=== PATIENT | female | born 1955 | race Caucasian/White ===

== ENCOUNTER → 2016-12-15 | Outpatient (CLI) | payer OTHER ==
[~2016-12-15] MED LIST: OXYC-12 PO
--- OUTSIDE RECORDS SUMMARY | 2016-12-15 07:38 | XMS REPORT | Continuity of Care Document ---
Author Author [facility] Organization [facility] Address Unknown Phone Unavailable Care Team Providers Care [place] Polisher Name Role Phone NAHID GALE PCP Insurance Providers Payer Name Policy Number Subscriber Name Relationship [facility] [id number] Lizbeth Vazquez 17 Self / Same As Patient Advance Directives Directive Response Recorded Date/Time Advance Directives No 02/02/15 8:00am Resuscitation Status Full Code 02/02/15 8:00am Chief Complaint and Reason for Visit Chief Complaint SMALL BOWEL OBSTRUCTION Reason for Visit Small bowel obstruction Small bowel obstruction Problems Medical Problems Problem Onset Date Status Small bowel obstruction Unknown Active Small bowel obstruction Unknown Active Medications Medication Dose Route Sig Days/Qty Instructions Order Date Discontinued Date Status Oxycodone Hcl/Acetaminophen 1-2 Tab PO EVERY 4HRS PRN PAIN 60 Qty 02/03 Active Social History Social History Problem Response Recorded Date/Time Alcohol Use Occasionally Uses 02/02/2015 8:00am Recreational Drug Use No 02/02/2015 8:00am Recent Foreign Travel No 02/02/2015 8:00am Recent Infectious Disease Exposure No 02/02/2015 8:00am Smoking Status Never a Smoker 02/02/2015 8:00am Query Response Start Date Stop Date Smoking Status Never a Smoker Hospital Discharge Instructions No hospital discharge instructions. Plan of Care Discharge Date 02/03/15 7:46pm Disposition 30 STILL A PATIENT Instructions/Education Provided Acute Abdominal Pain (ED) Forms Provided PDI Surgical Prescriptions See Medications Section Referrals TARAN PRINCE DO (Unspecified) Address: [address] [place], [place] [id number] Reason(s) for Referral: PLEASE CALL OFFICE TOMORROW FOR FOLLOW UP NEXT WEEK Functional Status No functional status results. Allergies, Adverse Reactions, Alerts Allergen Type Severity Reaction Status Last Updated No Known Drug Allergies Active 02/02/15 Immunizations No immunization records. Vital Signs Acute Vital Signs Vital Response Date/Time Temperature (Fahrenheit) 98.7 degrees F (97.6 - 99.5) Temperature (Calculated Celsius) 37.61551 degrees C (36.4 - 37.5) Temperature Source Temporal Pulse Rate (adult) 63 bpm (60 - 90) Respiratory Rate 18 bpm (12 - 24) O2 Sat by Pulse Oximetry 97 % (88 - 100) Blood Pressure 106/68 mm Hg Pain Pain Intensity 0 Height (Feet) 5 feet Height (Inches) 5.00 inches Height (Calculated Centimeters) 165.625962 cm Weight (Pounds) 130 pounds Weight (Calculated Grams) 86738.009 gm Weight (Calculated Kilograms) 58.197355 kilograms Calculated BMI 21.63 Results Laboratory Results Test Name Result Units Flags Reference Collection Date/Time Result Date/ Time Comments White Blood Count 12.2 10^3/uL H 4.3-11.0 02/03/2015 6:52am 02/03/2015 7: 01am Red Blood Count 3.99 10^6/uL L 4.35-5.85 02/03/2015 6:52am 02/03/2015 7: 01am Hemoglobin 12.3 G/DL 11.5-16.0 02/03/2015 6:52am 02/03/2015 7:01am Hematocrit 37 % 35-52 02/03/2015 6:52am 02/03/2015 7:01am Mean Corpuscular Volume 93 FL 80-99 02/03/2015 6:52am 02/03/2015 7: 01am Mean Corpuscular Hemoglobin 31 PG 25-34 02/03/2015 6:52am 02/03/2015 7: 01am Mean Corpuscular Hemoglobin Concent 33 G/DL 32-36 02/03/2015 6:52am 03/2015 7:01am Red Cell Distribution Width 13.6 % 10.0-14.5 02/03/2015 6:52am 2014 7:01am Platelet Count 186 10^3/uL 130-400 02/03/2015 6:52am 02/03/2015 7:01am Mean Platelet Volume 10.0 FL 7.4-10.4 02/03/2015 6:52am 02/03/2015 7: 01am Neutrophils (%) (Auto) 89 % H 42-75 02/02/2015 5:3002/02/2015 5:45am Lymphocytes (%) (Auto) 7 % L 12-44 02/02/2015 5:3002/02/2015 5:45am Monocytes (%) (Auto) 3 % 0-12 02/02/2015 5:02/02/2015 5:45am Eosinophils (%) (Auto) 0 % 0-10 02/02/2015 5:3002/02/2015 5:45am Basophils (%) (Auto) 0 % 0-10 02/02/2015 5:02/02/2015 5:45am Neutrophils # (Auto) 8.8 X 10^3 H 1.8-7.8 02/02/2015 5:02/02/2015 5: 45am Lymphocytes # (Auto) 0.7 X 10^3 L 1.0-4.0 02/02/2015 5:3002/02/2015 5: 45am Monocytes # (Auto) 0.3 X 10^3 0.0-1.0 02/02/2015 5:3002/02/2015 5: 45am Eosinophils # (Auto) 0.0 10^3/uL 0.0-0.3 02/02/2015 5:3002/02/2015 5 :45am Basophils # (Auto) 0.0 10^3/uL 0.0-0.1 02/02/2015 5:3002/02/2015 5: 45am Neutrophils % (Manual) 83 % 02/02/2015 5:3002/02/2015 6:05am Band Neutrophils 4 % 02/02/2015 5:3002/02/2015 6:05am Lymphocytes % (Manual) 10 % 02/02/2015 5:30am 02/02/2015 6:05am Monocytes % (Manual) 2 % 02/02/2015 5:30am 02/02/2015 6:05am Eosinophils % (Manual) 1 % 02/02/2015 5:30am 02/02/2015 6:05am Anisocytosis SLIGHT 02/02/2015 5:30am 02/02/2015 6:05am Urine Color YELLOW 02/02/2015 7:0602/02/2015 7:23am Urine Clarity CLEAR 02/02/2015 7:0602/02/2015 7:23am Urine pH 6 5-9 02/02/2015 7:02/02/2015 7:23am Urine Specific [place] 1.020 1.016-1.022 02/02/2015 7:062014 7:23am Urine Protein 2+ * NEGATIVE 02/02/2015 7:02/02/2015 7:23am Urine Glucose (UA) NEGATIVE NEGATIVE 02/02/2015 7:02/02/2015 7: 23am Urine RBC (Auto) 2+ * NEGATIVE 02/02/2015 7:02/02/2015 7:23am Urine Ketones NEGATIVE NEGATIVE 02/02/2015 7:0602/02/2015 7:23am Urine Nitrite NEGATIVE NEGATIVE 02/02/2015 7:02/02/2015 7:23am Urine Bilirubin NEGATIVE NEGATIVE 02/02/2015 7:02/02/2015 7: 23am Urine Urobilinogen NORMAL MG/DL NORMAL 02/02/2015 7:02/02/2015 7: 23am Urine Leukocyte Esterase 1+ * NEGATIVE 02/02/2015 7:02/02/2015 7: 23am Urine RBC NONE /HPF 02/02/2015 7:02/02/2015 7:23am Urine WBC 0-2 /HPF 02/02/2015 7:02/02/2015 7:23am Urine Bacteria FEW /HPF * 02/02/2015 7:02/02/2015 7:23am Urine Squamous Epithelial Cells 0-2 /HPF 02/02/2015 7:2014 7:23am Urine Crystals NONE /LPF 02/02/2015 7:0602/02/2015 7:23am Urine Casts NONE /LPF 02/02/2015 7:06am 02/02/2015 7:23am Urine Mucus NEGATIVE /LPF 02/02/2015 7:0602/02/2015 7:23am Urine Culture Indicated NO 02/02/2015 7:0602/02/2015 7:23am Sodium Level 142 MMOL/L 135-145 02/03/2015 6:52am 02/03/2015 7:29am Potassium Level 4.2 MMOL/L 3.6-5.0 02/03/2015 6:52am 02/03/2015 7:29am Chloride Level 113 MMOL/L H 98-107 02/03/2015 6:52am 02/03/2015 7:29am Carbon Dioxide Level 24 MMOL/L 21-32 02/03/2015 6:52am 02/03/2015 7: 29am Blood Urea Nitrogen 6 MG/DL L 7-18 02/03/2015 6:52am 02/03/2015 7:29am Creatinine 0.82 MG/DL 0.60-1.30 02/03/2015 6:52am 02/03/2015 7:29am BUN/Creatinine Ratio 7 02/03/2015 6:52am 02/03/2015 7:29am Estimat Glomerular Filtration Rate > 60 02/03/2015 6:52am 2014 7:29am GFR INTERPRETIVE DATA UNITS FOR ESTIMATED GFR (eGFR): mL/min/1.73 M2 REFERENCE RANGE FOR ESTIMATED GFR (eGFR) eGFR NORMAL eGFR >60 MODERATELY DECREASED eGFR 30-59 SEVERLY DECREASED eGFR 15-29 KIDNEY FAILURE <15 (OR DIALYSIS) Glucose Level 133 MG/DL H 70-105 02/03/2015 6:52am 02/03/2015 7:29am Calcium Level 8.7 MG/DL 8.5-10.1 02/03/2015 6:52am 02/03/2015 7:29am Total Bilirubin 0.3 MG/DL 0.1-1.0 02/02/2015 5:30am 02/02/2015 6:01am Alkaline Phosphatase 65 U/L 40-136 02/02/2015 5:30am 02/02/2015 6:01am Aspartate Amino Transf (AST/SGOT) 20 U/L 5-34 02/02/2015 5:30am 2014 6:01am Alanine Aminotransferase (ALT/SGPT) 15 U/L 0-55 02/02/2015 5:30am 02/02 6:01am Total Protein 7.9 G/DL 6.4-8.2 02/02/2015 5:30am 02/02/2015 6:01am Albumin 4.5 G/DL 3.2-4.5 02/02/2015 5:30am 02/02/2015 6:01am Amylase Level 71 U/L 25-125 02/02/2015 5:30am 02/02/2015 6:01am Lipase 32 U/L 8-78 02/02/2015 5:30am 02/02/2015 6:01am Procedures Procedure Status Date Provider(s) Diagnostic laparoscopy completed 02/02/15 TARAN PRINCE DO Encounters Encounter Location Date/Time Admitted Inpatient [facility] 02/02/15 6:54am Recent Diagnosis Small bowel obstruction Small bowel obstruction
--- NOTE | 2016-12-15 18:32 | Diagnostic Imaging Report ---
Bilateral screening mammogram. The current study was also evaluated with a Computer Aided Detection (CAD) system. INDICATION: Screening. No current complaints stated on the questionnaire. COMPARISON: 07/31/2015. FINDINGS: The breasts are composed of heterogeneously dense parenchyma which may decrease mammographic sensitivity. Calcifications are seen slightly increased in the breasts bilaterally. A rim calcification is suggested around a 6 mm lesion in the upper aspect of the left breast probably related to an old cyst. No developing suspicious mass or cluster of calcifications seen. IMPRESSION: No mammographic evidence of malignancy. ACR BI-RADS Category 2: Benign findings. Result letter will be mailed to the patient. Note: At least 10% of breast cancer is not imaged by mammography. Dictated by: Dictated on workstation # [id number]
== END ==
LOC: RAD 07:36
PROVIDERS: ATTEND Internal Medicine
DX: Z12.31 Encounter for screening mammogram for malignant neoplasm of breast (principal)
CPT/HCPCS: 77067

== ENCOUNTER → 2017-09-08 | Outpatient (CLI) | payer OTHER ==
[2017-09-08 10:06] LABS: BASOPHILS # (AUTO) 0.1 10^3/uL (0.0-0.1); BASOPHILS % (AUTO) 1 % (0-10); EOSINOPHILS # (AUTO) 0.2 10^3/uL (0.0-0.3); EOSINOPHILS % (AUTO) 3 % (0-10); LYMPHOCYTES # (AUTO) 1.7 X 10^3 (1.0-4.0); LYMPHOCYTES % (AUTO) 28 % (12-44); MEAN CORPUSCULAR HEMOGLOBIN 31 PG (25-34); MEAN CORPUSCULAR HGB CONC 34 G/DL (32-36); MEAN CORPUSCULAR VOLUME 92 FL (80-99); MONOCYTES # (AUTO) 0.5 X 10^3 (0.0-1.0); MONOCYTES % (AUTO) 8 % (0-12); NEUTROPHILS # (AUTO) 3.5 X 10^3 (1.8-7.8); NEUTROPHILS % (AUTO) 59 % (42-75); PLATELET COUNT 232 10^3/uL (130-400); RED BLOOD COUNT 4.82 10^6/uL (4.35-5.85); RED CELL DISTRIBUTION WIDTH 13.4 % (10.0-14.5); WHITE BLOOD COUNT 5.9 10^3/uL (4.3-11.0)
[2017-09-08 10:24] LABS: ALBUMIN 4.5 GM/DL (3.2-4.5); BILIRUBIN,TOTAL 0.6 MG/DL (0.1-1.0); CALCIUM 9.7 MG/DL (8.5-10.1); CREATININE SERUM 1.06 MG/DL (0.60-1.30); POTASSIUM 4.2 MMOL/L (3.6-5.0); TOTAL PROTEIN 7.8 GM/DL (6.4-8.2)
[2017-09-08 10:45] LABS: THYROID STIMULATING HORMONE 1.08 UIU/ML (0.35-4.94)
== END ==
LOC: LAB 09:29
PROVIDERS: ATTEND Internal Medicine
DX: Z00.00 Encounter for general adult medical examination without abnormal findings (principal); E78.00 Pure hypercholesterolemia, unspecified; E78.1 Pure hyperglyceridemia
CPT/HCPCS: 36415; 80053; 80061; 84443; 85025

== ENCOUNTER 2017-11-19 11:35 | Emergency (ER) | payer OTHER ==
[~2017-11-19] VITALS: Ht 165.1 cm; Wt 59.0 kg
--- NOTE | 2017-11-19 11:56 | ED Cough/URI ---
General Stated Complaint: PNUEMONIA WORSENING, PASSED OUT Source: patient Exam Limitations: no limitations History of Present Illness Date Seen by Provider: Nov 19, 2017 Time Seen by Provider: 11:53 Initial Comments To ER accompanied by her with a 4 to five-day history of cough. The cough is occasionally productive. On the second or third day of this illness which would've been the she was seen by her primary care DrJack Gale started on Omnicef. Today she passed out while on the toilet in her cough persists. Historian, she has only passed out with a high fever and she is uncertain whether or not she had a fever this morning when she passed out. Timing/Duration: constant Severity/Quality: moderate Associated Symptoms: cough Allergies and Home Medications Allergies Coded Allergies: No Known Drug Allergies (Unverified , 02/02/15) Home Medications Cefdinir 300 Mg Capsule, (Reported) Omeprazole 40 Mg Capsule., (Reported) Oxycodone Hcl/Acetaminophen 1 Each Tablet, 1-2 TAB PO Q4H PRN for PAIN, #60 Ref 0 Prescribed by: MORGAN SCHOFIELD on 02/03/15 1804 Constitutional: see HPI, chills EENTM: see HPI Respiratory: see HPI, cough Genitourinary: no symptoms reported Musculoskeletal: no symptoms reported Skin: no symptoms reported Psychiatric/Neurological: No Symptoms Reported Hematologic/Lymphatic: No Symptoms Reported Past Bxyrvhj-Pgpxjh-Vrfasd Hx Patient Social History Recent Foreign Travel: No Contact w/Someone Who Travel: No Seasonal Allergies Seasonal Allergies: No Surgeries Surgeries: Abdominal, Breast, Hysterectomy, Tubal Ligation Reproductive System 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 Blood Transfusions Adverse Reaction to a Blood Tr: No Physical Exam Vital Signs Vital Sign - Last 12Hours 11/19/17 11:41 Temp 98.5 Pulse 81 Resp 18 B/P (MAP) 138/69 (92) Pulse Ox 98 O2 Delivery Room Air Capillary Refill : General Appearance: WD/WN, no apparent distress Eyes: Bilateral Eye Normal Inspection, Bilateral Eye PERRL, Bilateral Eye EOMI HEENT: PERRL/EOMI, normal ENT inspection Neck: non-tender, full range of motion Respiratory: normal breath sounds, no respiratory distress, no accessory muscle use Cardiovascular: regular rate, rhythm, no murmur Gastrointestinal: normal bowel sounds, non tender, soft Extremities: normal range of motion, non-tender Neurologic/Psychiatric: alert, normal mood/affect, oriented x 3 Skin: normal color, warm/dry Focused Exam Evaluation Lactate Level Laboratory Tests 11/19/17 11:47: Lactic Acid Level 1.17 Lactic Acid Level Laboratory Tests Test 11/19/17 11:47 Lactic Acid Level 1.17 MMOL/L (0.50-2.00) Progress/Results/Core Measures Suspected Sepsis SIRS Temperature: Pulse: Respiratory Rate: Laboratory Tests 11/19/17 11:47: White Blood Count 5.8 Blood Pressure / Mean: Laboratory Tests 11/19/17 11:47: Lactic Acid Level 1.17 Laboratory Tests 11/19/17 11:47: Creatinine 1.08, Platelet Count 189, Total Bilirubin 0.4 Results/Orders Lab Results Laboratory Tests Test 11/19/17 11:47 11/19/17 12:03 Range/Units White Blood Count 5.8 4.3-11.0 10^3/uL Red Blood Count 4.59 4.35-5.85 10^6/uL Hemoglobin 14.1 11.5-16.0 G/DL Hematocrit 41 35-52 % Mean Corpuscular Volume 90 80-99 FL Mean Corpuscular Hemoglobin 31 25-34 PG Mean Corpuscular Hemoglobin Concent 34 32-36 G/DL Red Cell Distribution Width 13.3 10.0-14.5 % Platelet Count 189 130-400 10^3/uL Mean Platelet Volume 10.0 7.4-10.4 FL Neutrophils (%) (Auto) 70 42-75 % Lymphocytes (%) (Auto) 18 12-44 % Monocytes (%) (Auto) 12 0-12 % Eosinophils (%) (Auto) 1 0-10 % Basophils (%) (Auto) 0 0-10 % Neutrophils # (Auto) 4.1 1.8-7.8 X 10^3 Lymphocytes # (Auto) 1.0 1.0-4.0 X 10^3 Monocytes # (Auto) 0.7 0.0-1.0 X 10^3 Eosinophils # (Auto) 0.0 0.0-0.3 10^3/uL Basophils # (Auto) 0.0 0.0-0.1 10^3/uL Sodium Level 137 135-145 MMOL/L Potassium Level 3.7 3.6-5.0 MMOL/L Chloride Level 104 98-107 MMOL/L Carbon Dioxide Level 22 21-32 MMOL/L Anion Gap 11 5-14 MMOL/L Blood Urea Nitrogen 10 7-18 MG/DL Creatinine 1.08 0.60-1.30 MG/DL Estimat Glomerular Filtration Rate 51 BUN/Creatinine Ratio 9 Glucose Level 192 H 70-105 MG/DL Lactic Acid Level 1.17 0.50-2.00 MMOL/L Calcium Level 9.2 8.5-10.1 MG/DL Total Bilirubin 0.4 0.1-1.0 MG/DL Aspartate Amino Transf (AST/SGOT) 21 5-34 U/L Alanine Aminotransferase (ALT/SGPT) 18 0-55 U/L Alkaline Phosphatase 70 40-136 U/L Total Protein 7.4 6.4-8.2 GM/DL Albumin 4.2 3.2-4.5 GM/DL Urine Color YELLOW Urine Clarity CLEAR Urine pH 6 5-9 Urine Specific [place] 1.005 L 1.016-1.022 Urine Protein NEGATIVE NEGATIVE Urine Glucose (UA) NEGATIVE NEGATIVE Urine Ketones 1+ H NEGATIVE Urine Nitrite NEGATIVE NEGATIVE Urine Bilirubin NEGATIVE NEGATIVE Urine Urobilinogen NORMAL NORMAL MG/DL Urine Leukocyte Esterase NEGATIVE NEGATIVE Urine RBC (Auto) 2+ H NEGATIVE Urine RBC RARE /HPF Urine WBC NONE /HPF Urine Squamous Epithelial Cells NONE /HPF Urine Crystals NONE /LPF Urine Bacteria NEGATIVE /HPF Urine Casts NONE /LPF Urine Mucus NEGATIVE /LPF Urine Culture Indicated NO Micro Results Microbiology 11/19/17 Influenza Types A,B Antigen (JEMMA) - Final, Complete My Orders Orders - SEAN VILLARREAL [employer] Cbc With Automated Diff (11/19/17 11:51) Comprehensive Metabolic Panel (11/19/17 11:51) Influenza A And B Antigens (11/19/17 11:51) Chest Pa/Lat (2 View) (11/19/17 11:51) Blood Culture (11/19/17 11:51) Lactic Acid Analyzer (11/19/17 11:51) Ekg Tracing (11/19/17 11:51) Lactated Ringers (Lr 1000 Ml Iv Solution (11/19/17 12:00) Ua Culture If Indicated (11/19/17 12:02) Vital Signs/I&O Vital Sign - Last 12Hours 11/19/17 11:41 Temp 98.5 Pulse 81 Resp 18 B/P (MAP) 138/69 (92) Pulse Ox 98 O2 Delivery Room Air Capillary Refill : Diagnostic Imaging Diagonstic Imaging: Xray Plain Films/CT/US/NM/MRI: chest Comments NAME: JANEY G[facility] REC#: [id number] PT STATUS: REG ER : 1955 PHYSICIAN: SEAN VILLARREAL APRN ADMIT DATE: 11/19/17/ER Draft Date of Exam:11/19/17 CHEST PA/LAT (2 VIEW) Indication: Fever and cough Comparison: 09/02/2009 Findings: 2 views of the chest are obtained. Heart size is normal. The pulmonary vessels appear unremarkable. There is no pneumothorax, mediastinal widening or pleural fluid. The lungs are clear. Impression: No acute abnormalities demonstrated. Dictated on workstation # [id number] Dict: 11/19/17 1221 Trans: 11/19/17 1222 [facility] [id number] Interpreted by: HESHAM TEMPLETON DO Electronically signed by: Departure Impression Impression: Primary Impression: Influenza B Disposition: HOME, SELF-CARE Condition: Stable Departure-Patient Inst. Decision time for Depature: 12:28 Referrals: NAHID GALE DO (PCP/Family) Primary Care Physician Patient Instructions: Flu, Adult (DC) Add. Discharge Instructions: 1. Tylenol and Motrin for fever or body aches 2. You may stop the antibiotic 3. Use the cough medication as needed 4. Return to ER for any shortness of breath or other concerns. Scripts Promethazine HCl/Codeine (Prometh-Codein 6.25-10 mg/5 ml) 5 Ml Syrup 5 ML PO Q6H Y for COUGH, #120 ML Prov: SEAN VILLARREAL APRN 11/19/17 Copy Copies To 1: NAHID GALE PETER J APRN Nov 19, 2017 11:55
[2017-11-19] MEDS ORDERED: LACTATED RINGERS 1,000 ML IV SCH (12:00)
[2017-11-19 12:02] LABS: BASOPHILS % (AUTO) 0 % (0-10); EOSINOPHILS % (AUTO) 1 % (0-10); HEMATOCRIT 41 % (35-52); HEMOGLOBIN 14.1 G/DL (11.5-16.0); LYMPHOCYTES % (AUTO) 18 % (12-44); MEAN CORPUSCULAR HEMOGLOBIN 31 PG (25-34); MEAN CORPUSCULAR HGB CONC 34 G/DL (32-36); MEAN CORPUSCULAR VOLUME 90 FL (80-99); MONOCYTES # (AUTO) 0.7 X 10^3 (0.0-1.0); MONOCYTES % (AUTO) 12 % (0-12); NEUTROPHILS # (AUTO) 4.1 X 10^3 (1.8-7.8); NEUTROPHILS % (AUTO) 70 % (42-75); PLATELET COUNT 189 10^3/uL (130-400); RED BLOOD COUNT 4.59 10^6/uL (4.35-5.85); RED CELL DISTRIBUTION WIDTH 13.3 % (10.0-14.5); WHITE BLOOD COUNT 5.8 10^3/uL (4.3-11.0)
[2017-11-19] MEDS ORDERED: OMEP40CA36 (12:03)
[2017-11-19] MEDS ORDERED: CEFD300C3 (12:03)
[2017-11-19 12:10] LABS: BILIRUBIN,URINE NEGATIVE (NEGATIVE); CLARITY,URINE CLEAR; COLOR,URINE YELLOW; GLUCOSE, URINE (UA) NEGATIVE (NEGATIVE); KETONES,URINE 1+ (NEGATIVE); LEUKOCYTE ESTERASE ,URINE NEGATIVE (NEGATIVE); NITRITE,URINE NEGATIVE (NEGATIVE); PH,URINE 6 (5-9); PROTEIN,URINE NEGATIVE (NEGATIVE); UROBILINOGEN,URINE NORMAL (NORMAL)
[2017-11-19 12:18] LABS: BACTERIA,URINE NEGATIVE /HPF; RBC,URINE RARE /HPF
[2017-11-19 12:21] LABS: ALBUMIN 4.2 GM/DL (3.2-4.5); BILIRUBIN,TOTAL 0.4 MG/DL (0.1-1.0); CALCIUM 9.2 MG/DL (8.5-10.1); CREATININE SERUM 1.08 MG/DL (0.60-1.30); POTASSIUM 3.7 MMOL/L (3.6-5.0); TOTAL PROTEIN 7.4 GM/DL (6.4-8.2)
--- NOTE | 2017-11-19 12:23 | Diagnostic Imaging Report ---
Indication: Fever and cough Comparison: 09/02/2009 Findings: 2 views of the chest are obtained. Heart size is normal. The pulmonary vessels appear unremarkable. There is no pneumothorax, mediastinal widening or pleural fluid. The lungs are clear. Impression: No acute abnormalities demonstrated. Dictated by: Dictated on workstation # [id number]
[2017-11-19] MEDS ORDERED: PROM5SYR PO (12:29)
[2017-11-19 12:35] VITALS: BP 138/69
== END 2017-11-19 12:35 | disposition home or self-care (01) ==
LOC: EDUNIT# 11:35 → ER 11:37
DX: J10.1 Influenza due to other identified influenza virus with other respiratory manifestations (principal); Z90.710 Acquired absence of both cervix and uterus; Z98.51 Tubal ligation status
CPT/HCPCS: 36415; 71046; 80053; 81000; 83605; 85025; 87040; 87804; 93005

== ENCOUNTER → 2019-08-21 | Outpatient (CLI) | payer OTHER ==
[~2019-08-21] MED LIST changes: +CEFD300C3; +OMEP40CA36; +PROM5SYR PO
--- NOTE | 2019-08-21 13:34 | Diagnostic Imaging Report ---
INDICATION: Routine screening. COMPARISON: 12/15/2016 and 07/31/2015. TECHNIQUE: 2D and 3D bilateral screening mammography was performed with CAD. FINDINGS: Scattered fibroglandular densities are identified bilaterally. Numerous calcifications are identified in both breasts, similar to the prior exam. No dominant mass or malignant appearing microcalcifications are seen. The axillae are unremarkable. IMPRESSION: No mammographic features suspicious for malignancy are identified. ACR BI-RADS Category 2: Benign findings. Result letter will be mailed to the patient. Note: At least 10% of breast cancer is not imaged by mammography. Dictated by: Dictated on workstation # [id number]
== END ==
LOC: RAD 07:16
PROVIDERS: ATTEND Internal Medicine
DX: Z12.31 Encounter for screening mammogram for malignant neoplasm of breast (principal)
CPT/HCPCS: 77067

== ENCOUNTER → 2020-09-09 | Outpatient (CLI) | payer MEDICARE, OTHER ==
[~2020-09-09] MED LIST changes: +OMEP40CA27; -OMEP40CA36
--- NOTE | 2020-09-09 14:34 | Diagnostic Imaging Report ---
INDICATION: Routine screening. COMPARISON: 08/21/2019 and 12/15/2016. TECHNIQUE: 2D and 3D bilateral screening mammography was performed with CAD. FINDINGS: Scattered fibroglandular densities are identified bilaterally. Benign calcifications in both breasts are again noted and appear stable. No new mass or malignant appearing microcalcifications are seen. The axillae are unremarkable. IMPRESSION: No mammographic features suspicious for malignancy are identified. ACR BI-RADS Category 2: Benign findings. Result letter will be mailed to the patient. Note: At least 10% of breast cancer is not imaged by mammography. Dictated by: Dictated on workstation # [id number]
== END ==
LOC: RAD 10:30
PROVIDERS: ATTEND Internal Medicine
DX: Z12.31 Encounter for screening mammogram for malignant neoplasm of breast (principal)
CPT/HCPCS: 77063; 77067